=== PATIENT | female | born 1965 | race Caucasian/White ===

== ENCOUNTER 2018-09-07 08:57 | Day surgery (SDC) | payer BC ==
[~2018-09-07] VITALS: Ht 160 cm; Wt 72.8 kg
[2018-09-07] MEDS ORDERED: loratadine (10:08)
[2018-09-07] MEDS ORDERED: [UNRECOGNIZED DRUG - OTHER] (10:08)
[2018-09-07] MEDS ORDERED: metformin (10:08)
[2018-09-07 10:16] VITALS: Ht 160 cm; Wt 72.8 kg
[2018-09-07 10:39] VITALS: BP 120/64; PULSE 101; RESP 18
[2018-09-07] MEDS ORDERED: LIDOCAINE 4% SOLUTION 50 ML BTL ONE (11:05)
[2018-09-07] MEDS ORDERED: FENTAnyl 50 MCG/ML VIAL ONE (12:03)
[2018-09-07] MEDS ORDERED: MIDAZOLAM 1 MG/ML 2 ML INJ ONE ×2 (12:03)
[2018-09-07 12:38] VITALS: BP 102/56; RESP 20
== END 2018-09-07 12:54 | disposition home or self-care (01) ==
LOC: GIL 08:57
PROVIDERS: ATTEND Internal Medicine Gastroenterology
DX: K29.50 Unspecified chronic gastritis without bleeding (principal); K64.8 Other hemorrhoids; D12.5 Benign neoplasm of sigmoid colon; K20.8 Other esophagitis; E11.9 Type 2 diabetes mellitus without complications
CPT/HCPCS: 43239; 45380; 88305; 88312; J2250; J3010; Z7610